=== PATIENT | female | born 1950 | race Caucasian/White ===

== ENCOUNTER 2024-11-05 04:32 | Emergency (ER) | payer SELFPAY ==
[2024-11-05 04:37] VITALS: BP 137/77
[2024-11-05 04:49] VITALS: BP 134/72
[2024-11-05 04:56] VITALS: BMI 26.5
[2024-11-05 05:00] VITALS: BP 131/76
--- NOTE | 2024-11-05 05:12 | ED.GENMED ---
History of Present Illness
General
Chief Complaint: Fall
Source: patient
Exam Limitations: none
Time Seen by Provider: 11/05/24 04:51
Nursing documentation reviewed up to this point in time: agreed with
History of Present Illness
History of Present Illness:
Note:
CHIEF COMPLAINT(S)
Head injury with swelling following a fall.
HISTORY OF PRESENT ILLNESS
The patient is a 74-year-old female with past medical history of hypertension, hyperlipidemia, GERD who experienced a fall while attempting to stand up from a seated position. Patient reports that she was on the toilet using the bathroom and when
she stood up she lost her balance and had a mechanical fall did not lose consciousness. Currently she notes a headache. She reported hitting her head against the wall, particularly on the top of her head. The patient did not experience dizziness
prior to the fall and did not lose consciousness. She laid on the floor for some time before returning to the couch where she had been sleeping. Currently, she reports body shaking, which she describes mostly felt in her stomach, and a painful lump
on her head. The patient denies experiencing dizziness, nausea, vomiting, or neck pain following the incident. The swelling on her head is noted to be smaller than initially perceived, suggesting a reduction in the hematoma size. There are no
reports of numbness or tingling, and the patient describes being �shaky� but attributes it to nervousness from the incident. She denies any other injuries. She denies any pain to her extremities.
REVIEW OF SYSTEMS
See HPI
PHYSICAL EXAM
- Nursing notes reviewed and vital signs reviewed.
General: Patient is well appearing and in no acute distress; non-toxic
Skin: Warm and dry, no rashes or lesions
Head: Normocephalic,, right sided posterior scalp hematoma noted with no evidence of laceration
Eyes: Sclera non-icteric. EOMs intact.
Cardiac: Regular rate and rhythm, no murmurs
Peripheral Vascular: No lower extremity swelling or edema
Pulm: Normal respiratory effort, no wheezes, rales, rhonchi
Abdomen: No abdominal tenderness
Neuro: CN II-XII intact, no focal neurologic deficits.
Psychiatric: Appropriate mood and affect.
PROBLEM LIST
Acute:
- Head injury with hematoma
PLAN
- Obtain a CT scan of the brain to rule out intracranial bleeding.
- Administer high-dose acetaminophen for headache management.
- Monitor patient�s neurological status until CT results are available.
DIFFERENTIAL DIAGNOSIS
The Differential Diagnosis includes, in no particular order and is not limited to:
1. Subdural hematoma
2. Epidural hematoma
3. Intracerebral hemorrhage
4. Mild traumatic brain injury (concussion)
5. Vasovagal syncope
6. Orthostatic hypotension
7. Benign paroxysmal positional vertigo
8. Seizure
9. Annular vestibular neuritis
10. Acute stress reaction
CHART REVIEW
No prior ER physician documentation to review, no hospital discharge summaries to review
MDM/disposition
74-year-old female with a past medical history of hypertension, hyperlipidemia, GERD presents emergency department today with concerns of head injury and swelling following a fall. She reports that she lost her footing after standing up from the
toilet. She did not get dizzy or lightheadedness, she not lose consciousness. She notes a mild headache currently. Symptoms significantly improved with Tylenol. She went for CAT scan of the head and cervical spine which were unremarkable.
Suspect acute scalp contusion/hematoma dispel concussion. Discussed strict follow-up with PCP and return precautions. Patient stable for discharge.
Review of Systems
Review of Systems
All Other Systems: ROS reviewed and negative except as documented in HPI and ROS
Phy Exam
Physical Exam
Physical Exam:
see hpi
Course
Orders/Labs/Results
Orders:
Orders
11/05/24 05:18
CT Cervical Spine W/o Iv Contr Urgent
Comment:
Reason For Exam: blunt head injury
CT Head W/o Iv Contrast Urgent
Comment:
Reason For Exam: head strike, headache
Acetaminophen [Tylenol] 650 mg PO NOW STA
Vital Signs
Initial and Last Documented VS:
Initial Vital Signs
Temp Pulse Resp BP Pulse Ox
97.6 F 97 20 137/77 97
11/05/24 04:37 11/05/24 04:37 11/05/24 04:37 11/05/24 04:37 11/05/24 04:37
Last Documented Vital Signs
Temp Pulse Resp BP Pulse Ox
97.6 F 97 18 120/71 99
11/05/24 04:37 11/05/24 06:17 11/05/24 06:17 11/05/24 06:12 11/05/24 06:17
*Pulse Oximetry
SaO2: 97
Oxygen Mode of Delivery: Room air
Patient hypoxic: no
*Critical Care Note
Total Time (30-74mins, 75-104mins- exclusive of procedures): Not Applicable
ED Attending Note
-
Portions of this chart may have been created with voice recognition software.� Occasional wrong word or��sound alike� substitutions may have occurred due to the inherent limitations of voice recognition software.
Discharge Plan
Departure
Patient Disposition: Home (Routine Discharge)
Date of Disposition: 11/05/24
Time of Disposition: 06:42
Patient with high blood pressure during this ER visit?: No
Condition: Good
Discharge Problem:
Fall, Head contusion
Instructions: Head Injury in Adults (DC), BLOOD PRESSURE
Referrals:
Ciara Longo DO [Family Provider, Family Practice]
Activity Restrictions/Additional Instructions:
Please follow-up with your primary care provider.
You can continue to ice the area.
You can continue to take Tylenol as needed for your pain. You can also take Motrin if you have breakthrough symptoms.
PLEASE RETURN TO EMERGENCY DEPARTMENT SHOULD YOU DEVELOP INTRACTABLE NAUSEA OR VOMITING, DIZZINESS, LIGHTHEADEDNESS, NUMBNESS ON ONE SIDE OF THE BODY, DIFFICULTY SPEAKING, CONFUSION, DIFFICULTY AMBULATING, CHEST PAIN, SHORTNESS OF BREATH, OR ANY
OTHER SIGNS OR SYMPTOMS RECENTLY.
Interventions
Interventions:
*Risk Screen - Suicide Last Done: 11/05/24 04:37
*General Assessment Last Done: 11/05/24 04:37
*Neglect/Abuse Screening Last Done: 11/05/24 04:37
*ED- Fall Risk Assessment Last Done: 11/05/24 04:37
*ED COVID-19 Vaccine History Last Done: 11/05/24 04:37
*Nursing Disposition Last Done: 11/05/24 06:49
ED-Musculoskeletal Assessment Last Done: 11/05/24 04:56
ED- Neurological Assessment Last Done: 11/05/24 04:56
ED-Skin Assessment Last Done: 11/05/24 04:56
Discharge Date and Time
Discharge Date/Time: 11/05/24 06:51
Print Language: IRISH
[2024-11-05] MEDS: TYLENOL 650 MG PO (05:26)
[2024-11-05 06:12] VITALS: BP 120/71
== END 2024-11-05 06:51 | disposition home or self-care (01) ==
LOC: EMR 04:32
PROVIDERS: EMERGENCY PHYSICIAN Student in an Organized Health Care Education/Training Program; FAMILY PHYSICIAN Family Medicine
DX: S00.03XA Contusion of scalp, initial encounter (principal); W18.39XA Other fall on same level, initial encounter; W22.09XA Striking against other stationary object, initial encounter; E78.5 Hyperlipidemia, unspecified; I10 Essential (primary) hypertension
CPT/HCPCS: 99284; 70450; 72125